=== PATIENT | male | born 1940 | race Hispanic/Latino ===

== ENCOUNTER 2021-05-02 19:40 | Emergency (ER) | payer MEDICARE ==
[2021-05-02] MEDS ORDERED: ETOMIDATE 20 MG/10 ML INJ IV ONE (19:43)
[2021-05-02] MEDS ORDERED: SUCCINYLCHOLINE CHLORIDE 200 MG/10 ML INJ MDV ONE (19:43)
[2021-05-02] MEDS ORDERED: LIP THERAPY VASELINE TP PRN (19:54)
[2021-05-02] MEDS ORDERED: MINERAL OIL/PETROLATUM, WHITE OPHTH OINT 3.5 GM OU PRN (19:54)
[2021-05-02] MEDS ORDERED: VANCOMYCIN PHARMACY TO DOSE IV SCH (20:00)
[2021-05-02] MEDS ORDERED: SODIUM CHLORIDE 0.9% 1000 ML 1,000 ML IV ONE (20:30)
[2021-05-02 20:44] LABS: Basophils % (Auto) 0.1 % (0.0-1.8); Lymphocytes # (Auto) 1.2 K/mm3 (1.2-5.4); Lymphocytes % (Auto) 6.6 % (13.4-35.0); Mean Corpuscular HGB Conc 31 % (32-34); Mean Corpuscular Volume 95 fl (84-94); Monocytes # (Auto) 1.6 K/mm3 (0.0-0.8); Monocytes % (Auto) 8.9 % (0.0-7.3); Red Blood Count 6.71 M/mm3 (3.65-5.03); Red Cell Distribution Width 16.1 % (13.2-15.2)
--- NOTE | 2021-05-02 20:45 | XRay Report ---
CHEST 1 VIEW 05/02/2021 7:35 PM INDICATION / CLINICAL INFORMATION: ETT placement. COMPARISON: None available. FINDINGS: SUPPORT DEVICES: NG tube is curled within the mid chest and needs to be pulled and readjusted. ET tub e is not well seen. Signer Name: Ruddy Ashford MD Signed: 05/02/2021 8:40 PM Workstation Name: [id number]
[2021-05-02] MEDS ORDERED: CEFEPIME/NS 2 GM/100 ML 2 GM/100 ML BAG IV ONE (20:56)
[2021-05-02 21:00] LABS: Albumin 3.2 g/dL (3.9-5); Calcium 8.8 mg/dL (8.4-10.2)
[2021-05-02 21:03] LABS: Bacteria,Urine 1+ /HPF (Negative); Bilirubin,Urine SM (Negative); Blood,Urine SM (Negative); Color,Urine Amber (Yellow); Hyaline Casts,Urine 3 /LPF; Mucus,Urine 1+ /HPF
[2021-05-02 21:10] LABS: Ictotest,Urine Negative (Negative)
[2021-05-02 21:26] LABS: INR TNR (0.87-1.13); Partial Thromboplastin Time TNR Sec. (24.2-36.6)
[2021-05-02 21:28] LABS: Hemoglobin 19.6 gm/dl (11.8-15.2); Platelet Count 85 K/mm3 (140-440)
[2021-05-02 21:30] LABS: Hematocrit 63.6 % (35.5-45.6)
[2021-05-02] MEDS ORDERED: VANCOMYCIN 1,000 MG in SODIUM CHLORIDE 0.9% 250ML 250 ML IV ONE (21:30)
[2021-05-02 22:00] LABS: Chol/HDL Ratio 5.05 %
[2021-05-02] MEDS ORDERED: SENNOSIDES/DOCUSATE SODIUM 8.6/50 MG TAB FEEDTUBE SCH (22:00)
[2021-05-02] MEDS ORDERED: FAMOTIDINE 20 MG/2 ML INJ IV SCH (22:00)
[2021-05-02] MEDS ORDERED: SODIUM CHLORIDE 0.9% 1000 ML IV SOLN IV ONE (22:29)
--- NOTE | 2021-05-03 00:08 | XRay Report ---
ABDOMEN 1 VIEW 05/02/2021 10:56 PM INDICATION / CLINICAL INFORMATION: ngt reinsertion. COMPARISON: None available. FINDINGS: TUBES / LINES: No esophagogastric tube seen over the upper abdomen or visualized chest. BOWEL GAS PATTERN: No significant abnormality. FREE AIR / EXTRALUMINAL GAS: None. ADDITIONAL FINDINGS: No significant additional findings. IMPRESSION: 1. No esophagogastric tube visualized over the chest or upper abdomen. Signer Name: Emmanuel Smith MD Signed: 05/03/2021 12:03 AM Workstation Name: [id number]
--- NOTE | 2021-05-03 00:10 | XRay Report ---
CHEST 1 VIEW 05/02/2021 10:56 PM INDICATION / CLINICAL INFORMATION: post intubation. COMPARISON: 05/03/21 8:07 PM FINDINGS: SUPPORT DEVICES: Endotracheal tube is 6 cm above the gaby. Right jugular central line projects over the mid SVC. Esophagogastric tube is coiled in the lower neck. HEART / MEDIASTINUM: No significant abnormality. LUNGS / PLEURA: Bibasilar scarring is unchanged. No acute airspace disease. No pneumothorax. ADDITIONAL FINDINGS: No significant additional findings. IMPRESSION: 1. Endotracheal tube in expected position. 2. Esophagogastric tube coiled in the lower neck. Tube should be removed and/or repositioned. Signer Name: Emmanuel Smith MD Signed: 05/03/2021 12:05 AM Workstation Name: [id number]
[2021-05-03] MEDS ORDERED: SODIUM BICARB 8.4% 50 MEQ/50 ML SYRINGE IV ONE (00:45)
[2021-05-03] MEDS ORDERED: CALCIUM CHLORIDE 1,000 MG/10 ML SDV IVP ONE (00:45)
[2021-05-03] MEDS ORDERED: DEXTROSE 50% IN WATER (25GM) 50 ML SYRINGE IV ONE (00:45)
[2021-05-03] MEDS ORDERED: INSULIN REGULAR, HUMAN 100 UNITS/1 ML IV ONE (00:45)
[2021-05-03] MEDS ORDERED: NORepinephrine/NS 8 MG-250 ML 8 MG/250 ML INFUS..BTL IV SCH (00:45)
[2021-05-03] MEDS ORDERED: SODIUM CHLORIDE 0.9% 1000 ML 2,000 ML ONE (00:49)
--- NOTE | 2021-05-03 00:51 | Emergency Department Report ---
ED Altered Mental Status HPI - General Chief Complaint: Dyspnea/Respdistress Stated Complaint: resp distress PUI?: Yes Time Seen by Provider: 05/02/21 19:52 Source: family (granddaugther Jacklyn), EMS Mode of arrival: Stretcher Limitations: Altered Mental Status, Other - History of Present Illness Initial Comments: CC: altered mental status HPI: This is a 80 yo male with hx of prostate CA who presents with decreased responsiveness and failure to thrive. For the past year, patient had a noticeable decline per family. Granddaughter Jacklyn gave hx per phone and in person. She has had frequent falls and poor appetite. Several family members were diagnosed with COVID 19 end of March. He was exposed to these household contacts. He became less mobile several weeks ago. He was too weak to ambulate to bathroom requiring adult diapers. He recently seemed delirious, "out of it". He stopped eating. EMS evaluated patient one day prior. He refused transportion. Today, patient is unconscious, lethargic with minimal respiratory effort. He required bag mask ventilation via EMS. Mr. Mchugh has not received medical care in several years. Granddaughter suspects cancer returned. Granddaughter will be decision maker. has severe dementia. Daughter is ill. MD Complaint: altered mental status, decreased responsiveness -: Gradual, week(s) (several weeks) Severity: severe Consistency of Symptoms: getting worse Context: other (COVID exposure) Associated Symptoms: loss of appetite, difficulty walking - Related Data Allergies Allergy/AdvReac Type Severity Reaction Status Date / Time No Known Allergies Allergy Verified 05/02/21 20:12 ED Review of Systems ROS: Stated complaint: resp distress Other details as noted in HPI Comment: Unobtainable due to pts medical conditions (critical illness) ED Past Medical Hx - Past Medical History Previous Medical History?: Yes Additional medical history: prostate CA - Surgical History Additional Surgical History: family does not know - Social History Smoking Status: Never Smoker Substance Use Type: None ED Physical Exam - General Limitations: Other General appearance: obtunded, other (mouth open, GCS 3, agonal respirations) - Head Head exam: Present: atraumatic, normocephalic - Eye Eye exam: Present: other (sluggish pupils) - ENT ENT exam: Present: mucous membranes dry, other (poor oral hygiene, caked residue in mouth, teeth) - Neck Neck exam: Present: normal inspection, full ROM - Respiratory Respiratory exam: Absent: wheezes, rales, rhonchi, decreased breath sounds - Cardiovascular Cardiovascular Exam: Present: regular rate, tachycardia, other (distant heart sounds). Absent: systolic murmur, diastolic murmur - GI/Abdominal GI/Abdominal exam: Present: soft, distended, diminished bowel sounds - Extremities Exam Extremities exam: Present: other (cyanotic hands/feet, no deformity) - Neurological Exam Neurological exam: Present: altered - Psychiatric Psychiatric exam: Present: flat affect - Skin Skin exam: Present: cyanosis, pallor ED Course Vital Signs 05/02/21 05/02/21 05/02/21 20:12 20:16 20:30 Pulse Rate 113 H 112 H 113 H Respiratory 15 20 20 Rate O2 Sat by Pulse Oximetry 05/02/21 05/02/21 05/02/21 20:46 21:00 21:16 Pulse Rate 112 H 110 H 108 H Respiratory 25 H 32 H 31 H Rate O2 Sat by Pulse Oximetry 05/02/21 05/02/21 05/02/21 21:28 21:30 21:46 Pulse Rate 102 H 105 H 102 H Respiratory 28 H 24 Rate O2 Sat by Pulse 96 Oximetry 05/02/21 05/02/21 05/02/21 22:00 22:16 22:30 Pulse Rate 110 H 107 H 108 H Respiratory 23 26 H 24 Rate O2 Sat by Pulse Oximetry 05/02/21 05/02/21 05/02/21 22:46 23:00 23:16 Pulse Rate 108 H 109 H 109 H Respiratory 28 H 28 H 17 Rate O2 Sat by Pulse Oximetry 05/02/21 05/03/21 23:30 00:00 Pulse Rate 108 H 138 H Respiratory 19 Rate O2 Sat by Pulse 96 Oximetry - Central Line Placement Right IJ Consent Obtained: verbal consent Time Out Performed: Yes Patient Placed on Monitor/Pulse Ox: Yes Prep: mask, gown, gloves, other (5 point barrier precautions including cap drapes) Ultrasound Used for Placement: Yes Central Line Lumen Inserted: triple Reason for Insertion: Emergency Venous Access Bloods Obtained for Lab: Yes Central Line Position: good blood return, sutured in place with nyl Dressing Applied: Tegaderm, other (biopatch) Post Procedure X-Ray: tip of catheter in good p Patient Tolerated Procedure: well, no complications Complications: none - Intubation Time Out Performed: No (emergent) Sedative: Etomidate Mg Given: 20 Paralytic: Succinylcholine Mg Given: 150 Laryngoscope: fiberoptic video scope Size: 4 ET Tube Size: 8 Tube Secured Depth (cm): 24 Tube Secured Location: lips Tube Placement Confirmation: visualized tube passing t Patient Tolerated Procedure: no complications Intubation Complications: none - Lab Data Result diagrams: 05/02/21 19:56 05/02/21 19:56 Lab Results 05/02/21 05/02/21 05/02/21 Range/Units 19:56 19:56 19:56 WBC 18.4 H (4.5-11.0) K/mm3 RBC 6.71 H (3.65-5.03) M/mm3 Hgb 19.6 H (11.8-15.2) gm/dl Hct 63.6 H* (35.5-45.6) % MCV 95 H (84-94) fl MCH 29 (28-32) pg MCHC 31 L (32-34) % RDW 16.1 H (13.2-15.2) % Plt Count 85 L (140-440) K/mm3 Lymph % (Auto) 6.6 L (13.4-35.0) % Frederick % (Auto) 8.9 H (0.0-7.3) % Eos % (Auto) 0.0 (0.0-4.3) % Baso % (Auto) 0.1 (0.0-1.8) % Lymph # (Auto) 1.2 (1.2-5.4) K/mm3 Frederick # (Auto) 1.6 H (0.0-0.8) K/mm3 Eos # (Auto) 0.0 (0.0-0.4) K/mm3 Baso # (Auto) 0.0 (0.0-0.1) K/mm3 Seg Neutrophils % 84.4 H (40.0-70.0) % Seg Neutrophils # 15.5 H (1.8-7.7) K/mm3 PT TNR INR TNR APTT TNR D-Dimer TNR Sodium 157 H (137-145) mmol/L Potassium 6.0 H (3.6-5.0) mmol/L Chloride 113.9 H (98-107) mmol/L Carbon Dioxide 14 L (22-30) mmol/L Anion Gap 35 mmol/L BUN 152 H (9-20) mg/dL Creatinine 5.9 H (0.8-1.3) mg/dL Estimated GFR 9 ml/min BUN/Creatinine Ratio 26 % Glucose 219 H (75-100) mg/dL Lactic Acid (0.7-2.0) mmol/L Calcium 8.8 (8.4-10.2) mg/dL Total Bilirubin 2.30 H (0.1-1.2) mg/dL AST 50 H (5-40) units/L ALT 31 (7-56) units/L Alkaline Phosphatase 64 (35-129) units/L Ammonia (25-60) umol/L Lactate Dehydrogenase (91-180) units/L Troponin T 0.046 H (0.00-0.029) ng/mL C-Reactive Protein (0.00-1.30) mg/dL NT-Pro-B Natriuret Pep (0-900) pg/mL Total Protein 7.7 (6.3-8.2) g/dL Albumin 3.2 L (3.9-5) g/dL Albumin/Globulin Ratio 0.7 % Triglycerides 183 H (2-149) mg/dL Cholesterol 91 (50-199) mg/dL LDL Cholesterol Direct 33 L (50-130) mg/dL HDL Cholesterol 18 L (40-59) mg/dL Cholesterol/HDL Ratio 5.05 % TSH (0.270-4.200) mlU/mL Urine Color (Yellow) Urine Turbidity (Clear) Urine pH (5.0-7.0) Ur Specific [place] (1.003-1.030) Urine Protein (Negative) mg/dL Urine Glucose (UA) (Negative) mg/dL Urine Ketones (Negative) mg/dL Urine Blood (Negative) Urine Nitrite (Negative) Urine Bilirubin (Negative) Urine Ictotest (Negative) Urine Urobilinogen (<2.0) mg/dL Ur Leukocyte Esterase (Negative) Urine WBC (Auto) (0.0-6.0) /HPF Urine RBC (Auto) (0.0-6.0) /HPF U Epithel Cells (Auto) (0-13.0) /HPF Urine Bacteria (Auto) (Negative) /HPF Hyaline Casts /LPF Urine Mucus /HPF Urine Yeast (Budding) /HPF 05/02/21 05/02/21 05/02/21 Range/Units 19:56 19:56 19:56 WBC (4.5-11.0) K/mm3 RBC (3.65-5.03) M/mm3 Hgb (11.8-15.2) gm/dl Hct (35.5-45.6) % MCV (84-94) fl MCH (28-32) pg MCHC (32-34) % RDW (13.2-15.2) % Plt Count (140-440) K/mm3 Lymph % (Auto) (13.4-35.0) % Frederick % (Auto) (0.0-7.3) % Eos % (Auto) (0.0-4.3) % Baso % (Auto) (0.0-1.8) % Lymph # (Auto) (1.2-5.4) K/mm3 Frederick # (Auto) (0.0-0.8) K/mm3 Eos # (Auto) (0.0-0.4) K/mm3 Baso # (Auto) (0.0-0.1) K/mm3 Seg Neutrophils % (40.0-70.0) % Seg Neutrophils # (1.8-7.7) K/mm3 PT INR APTT D-Dimer Sodium (137-145) mmol/L Potassium (3.6-5.0) mmol/L Chloride (98-107) mmol/L Carbon Dioxide (22-30) mmol/L Anion Gap mmol/L BUN (9-20) mg/dL Creatinine (0.8-1.3) mg/dL Estimated GFR ml/min BUN/Creatinine Ratio % Glucose (75-100) mg/dL Lactic Acid 7.50 H* (0.7-2.0) mmol/L Calcium (8.4-10.2) mg/dL Total Bilirubin (0.1-1.2) mg/dL AST (5-40) units/L ALT (7-56) units/L Alkaline Phosphatase (35-129) units/L Ammonia 45.0 (25-60) umol/L Lactate Dehydrogenase (91-180) units/L Troponin T (0.00-0.029) ng/mL C-Reactive Protein (0.00-1.30) mg/dL NT-Pro-B Natriuret Pep (0-900) pg/mL Total Protein (6.3-8.2) g/dL Albumin (3.9-5) g/dL Albumin/Globulin Ratio % Triglycerides (2-149) mg/dL Cholesterol (50-199) mg/dL LDL Cholesterol Direct (50-130) mg/dL HDL Cholesterol (40-59) mg/dL Cholesterol/HDL Ratio % TSH 0.730 (0.270-4.200) mlU/mL Urine Color (Yellow) Urine Turbidity (Clear) Urine pH (5.0-7.0) Ur Specific [place] (1.003-1.030) Urine Protein (Negative) mg/dL Urine Glucose (UA) (Negative) mg/dL Urine Ketones (Negative) mg/dL Urine Blood (Negative) Urine Nitrite (Negative) Urine Bilirubin (Negative) Urine Ictotest (Negative) Urine Urobilinogen (<2.0) mg/dL Ur Leukocyte Esterase (Negative) Urine WBC (Auto) (0.0-6.0) /HPF Urine RBC (Auto) (0.0-6.0) /HPF U Epithel Cells (Auto) (0-13.0) /HPF Urine Bacteria (Auto) (Negative) /HPF Hyaline Casts /LPF Urine Mucus /HPF Urine Yeast (Budding) /HPF 05/02/21 05/02/21 Range/Units 19:56 Unknown WBC (4.5-11.0) K/mm3 RBC (3.65-5.03) M/mm3 Hgb (11.8-15.2) gm/dl Hct (35.5-45.6) % MCV (84-94) fl MCH (28-32) pg MCHC (32-34) % RDW (13.2-15.2) % Plt Count (140-440) K/mm3 Lymph % (Auto) (13.4-35.0) % Frederick % (Auto) (0.0-7.3) % Eos % (Auto) (0.0-4.3) % Baso % (Auto) (0.0-1.8) % Lymph # (Auto) (1.2-5.4) K/mm3 Frederick # (Auto) (0.0-0.8) K/mm3 Eos # (Auto) (0.0-0.4) K/mm3 Baso # (Auto) (0.0-0.1) K/mm3 Seg Neutrophils % (40.0-70.0) % Seg Neutrophils # (1.8-7.7) K/mm3 PT INR APTT D-Dimer Sodium (137-145) mmol/L Potassium (3.6-5.0) mmol/L Chloride (98-107) mmol/L Carbon Dioxide (22-30) mmol/L Anion Gap mmol/L BUN (9-20) mg/dL Creatinine (0.8-1.3) mg/dL Estimated GFR ml/min BUN/Creatinine Ratio % Glucose 220 H (75-100) mg/dL Lactic Acid (0.7-2.0) mmol/L Calcium (8.4-10.2) mg/dL Total Bilirubin (0.1-1.2) mg/dL AST (5-40) units/L ALT (7-56) units/L Alkaline Phosphatase (35-129) units/L Ammonia (25-60) umol/L Lactate Dehydrogenase 536 H (91-180) units/L Troponin T (0.00-0.029) ng/mL C-Reactive Protein 19.00 H (0.00-1.30) mg/dL NT-Pro-B Natriuret Pep 1307 H (0-900) pg/mL Total Protein (6.3-8.2) g/dL Albumin (3.9-5) g/dL Albumin/Globulin Ratio % Triglycerides (2-149) mg/dL Cholesterol (50-199) mg/dL LDL Cholesterol Direct (50-130) mg/dL HDL Cholesterol (40-59) mg/dL Cholesterol/HDL Ratio % TSH (0.270-4.200) mlU/mL Urine Color Tania (Yellow) Urine Turbidity Cloudy (Clear) Urine pH 5.0 (5.0-7.0) Ur Specific [place] 1.020 (1.003-1.030) Urine Protein 100 mg/dl (Negative) mg/dL Urine Glucose (UA) 50 (Negative) mg/dL Urine Ketones Neg (Negative) mg/dL Urine Blood Sm (Negative) Urine Nitrite Neg (Negative) Urine Bilirubin Sm (Negative) Urine Ictotest Negative (Negative) Urine Urobilinogen 4.0 (<2.0) mg/dL Ur Leukocyte Esterase Neg (Negative) Urine WBC (Auto) 13.0 H (0.0-6.0) /HPF Urine RBC (Auto) 14.0 (0.0-6.0) /HPF U Epithel Cells (Auto) 3.0 (0-13.0) /HPF Urine Bacteria (Auto) 1+ (Negative) /HPF Hyaline Casts 3 /LPF Urine Mucus 1+ /HPF Urine Yeast (Budding) 2+ /HPF - EKG Data -: EKG Interpreted by Me EKG shows normal: sinus rhythm Rate: tachycardia 05/03/21 01:03 EKG obtained 0015 EKG interpreted by me Rate 135 bpm normal axis prolonged QTC increased amplitude T waves peaked T waves no ST elevation - Radiology Data Radiology results: report reviewed [facility] [address] [place] [address] XRay Report Signed Patient: DAYRON MCHUGH MR#: [id number] : 1940 Acct:[id number] Age/Sex: 80 / M ADM Date: 05/02/21 Loc: ED Attending Dr: Ordering Physician: Alcira Munoz MD Date of Service: 05/02/21 Procedure(s): XR chest 1V ap Accession Number(s): [id number] cc: Alcira Munoz MD Fluoro Time In Minutes: CHEST 1 VIEW 05/02/2021 10:56 PM INDICATION / CLINICAL INFORMATION: post intubation. COMPARISON: 05/03/21 8:07 PM FINDINGS: SUPPORT DEVICES: Endotracheal tube is 6 cm above the gaby. Right jugular central line projects over the mid SVC. Esophagogastric tube is coiled in the lower neck. HEART / MEDIASTINUM: No significant abnormality. LUNGS / PLEURA: Bibasilar scarring is unchanged. No acute airspace disease. No pneumothorax. ADDITIONAL FINDINGS: No significant additional findings. IMPRESSION: 1. Endotracheal tube in expected position. 2. Esophagogastric tube coiled in the lower neck. Tube should be removed and/or repositioned. Signer Name: Emmanuel Smith MD Signed: 05/03/2021 12:05 AM Workstation Name: [id number] Transcribed By: DT Dictated By: Rashaun Smith MD Electronically Authenticated By: Rashaun Smith MD Signed Date/Time: 05/03/21 0005 DD/ 0003 TD/TT: - Medical Decision Making 1. Acute metabolic encephalopathy due to multiple factors including uremic encephalopathy, sepsis, hypoxia, COVID. Patient intubated immediately upon arrival for airway protection. 2. Acute kidney injury: Vasomotor nephropathy due to sepsis and poor p.o. intake. Treated with IV fluid therapy. Hyperkalemia addressed appropriately with calcium chloride, sodium bicarbonate, insulin and dextrose. 3. Septic shock: Broad-spectrum antibiotics cefepime and vancomycin administered IV. 30 mL/kg normal saline bolus according to sepsis protocol initiated. Severe lactic acidosis. 4. Exposure to COVID-19 with multiple hospital contacts, suspect COVID-19. Dexamethasone IV administered in emergency department 5. Failure to thrive over the last year with history of prostate cancer, suspect metastatic or recurrent malignancy. Awaiting CT scans of the chest abdomen pelvis once patient becomes stabilized. 6. End-of-life discussion initiated with granddaughter. She understands that patient is critically ill and may quickly deteriorate within the next few hours. Unable to establish blood pressure despite norepinephrine vasopressor therapy. I have ordered vasopressin in addition to norepinephrine. Critical Care Time: Yes Critical care time in (mins) excluding proc time.: 100 Critical care attestation.: If time is entered above; I have spent that time in minutes in the direct care of this critically ill patient, excluding procedure time. 100 minutes of critical care time excluding procedures were used in the care of the patient. I came immediately to the bedside upon patient's arrival. I obtained history from EMS at the bedside. I discussed treatment plan with the nursing team members. I reviewed electronic record. I kept the family members informed. Patient required multiple interventions and reassessments. ED Disposition Clinical Impression: Acute respiratory failure, Suspected COVID-19 virus infection, ROBIN (acute kidney injury), Septic shock, Acute metabolic encephalopathy, History of prostate cancer, Failure to thrive Disposition: ADMITTED INPATIENT Is pt being admited?: Yes Does the pt Need Aspirin: No Condition: Stable Referrals: PRIMARY CARE, [Primary Care Provider] - 3-5 Days
[2021-05-03] MEDS ORDERED: CALCIUM CHLORIDE 1,000 MG in SODIUM CHLORIDE 0.9% 100 ML IV ONE (01:00)
[2021-05-03 02:00] VITALS: BP 64/43
[2021-05-03] MEDS ORDERED: VASOPRESSIN 20 UNIT in SODIUM CHLORIDE 0.9% 100 ML IV SCH (02:00)
[2021-05-03] MEDS ORDERED: MORPHINE 2 MG/1 ML INJ IV ONE (02:09)
--- NOTE | 2021-05-03 04:21 | Event Note ---
Date: 05/03/21 80-year-old white male with known history of prostate cancer seen in the emergency room for decreased responsiveness and failure to thrive. His work-up in the emergency room at revealed acute respiratory failure, ROBIN, septic shock, acute metabolic encephalopathy and suspected COVID. Patient had been intubated and sedated by the ER physician prior to my evaluation of patient. During the course of patient's stay in the emergency room family had withdrawn care and requested only comfort measures. Upon exam patient's pupils were fixed and dilated No response to deep sternal rub or verbal commands. Chest: No breath sounds Cardiovascular exam: No peripheral pulses and no heart sounds. Abdomen: No bowel sounds Extremities: Cold and clammy Central nervous system: No reflexes Patient pronounced at 2:38 AM on May 03, 2021. Granddaughter was by the bedside.
[2021-05-03] MEDS ORDERED: FAMOTIDINE 20 MG/2 ML INJ IV SCH (10:00)
== END 2021-05-03 03:00 | disposition admitted as inpatient to this hospital (09) ==
LOC: ED 19:40
DX: J96.00 Acute respiratory failure, unspecified whether with hypoxia or hypercapnia (principal); R65.21 Severe sepsis with septic shock; N17.9 Acute kidney failure, unspecified; Z20.822 Contact with and (suspected) exposure to COVID-19; G93.41 Metabolic encephalopathy; Z85.46 Personal history of malignant neoplasm of prostate
CPT/HCPCS: 31500; 36415; 71045; 74018; 80053; 80061; 81001; 82140; 82947; 83615; 83880; 84145; 84443; 84484; 85025; 86140; 86403; 87040; 87076; 87086; 87186; 93005; 94002; 96361; 96365; 96375; 99291; 99292; J0330; J0692; J2270; J2354; J3370; J3490; J7030; J7050; Q0162; J2704